=== PATIENT | female | born 1995 | race Native Hawaiian/Other Pacific Islander ===

== ENCOUNTER 2018-02-26 03:29 | Emergency (ER) | payer BC ==
[2018-02-26] MEDS ORDERED: Sodium Chloride 0.9% 1,000 ML IV ONE (04:25)
[2018-02-26 04:57] LABS: HCG,QUALITATIVE URINE NEGATIVE (NEGATIVE); SQUAMOUS EPITHIAL 1 /hpf (0-5); URINE BILIRUBIN NEGATIVE (NEGATIVE); URINE BLOOD 1+ (NEGATIVE); URINE CLARITY Clear (Clear); URINE COLOR Yellow (YELLOW); URINE GLUCOSE (UA) NORMAL (Normal); URINE LEUKOCYTE ESTERASE NEG Leu/uL (Negative); URINE PROTEIN NEGATIVE (NEGATIVE); URINE UROBILINOGEN NORMAL mg/dL (0.2-1.0)
[2018-02-26 05:09] LABS: BASO % 0.2 % (0.0-2.0); EOS # 0.3 K/uL (0.0-0.7); EOS % 1.6 % (0.0-4.0); HEMOGLOBIN 12.7 g/dL (11.0-16.0); LYMPH # 1.8 K/uL (1.0-4.3); LYMPH % 9.8 % (20.0-40.0); MEAN CELL VOLUME 84.6 fL (81.0-99.0); MEAN CORPUSCULAR HEMOGLOBIN 28.3 pg (27.0-31.0); MEAN CORPUSCULAR HGB CONC 33.4 g/dL (33.0-37.0); MEAN PLATELET VOLUME 8.2 fL (7.2-11.7); MONO # 1.3 K/uL (0.0-0.8); MONO % 7.1 % (0.0-10.0); NEUT # 14.7 K/uL (1.8-7.0); NEUT % 81.3 % (50.0-75.0); NRBC % 0.1 % (0.0-2.0); PLATELET COUNT 253 K/uL (130-400); RBC 4.51 Mil/uL (3.80-5.20); WHITE BLOOD COUNT 18.1 K/uL (4.8-10.8)
[2018-02-26 05:27] LABS: ALB/GLOB RATIO 1.2 (1.0-2.1); ALBUMIN 4.5 g/dL (3.5-5.0); ALT/SGPT 14 U/L (9-52); AST/SGOT 27 U/L (14-36); BLOOD UREA NITROGEN 13 mg/dL (7-17); CALCIUM 9.4 mg/dl (8.6-10.4); GFR NON-AFRICAN AMERICAN > 60
[2018-02-26] MEDS ORDERED: Enoxaparin 40 mg Syringe SC ONE (05:52)
--- NOTE | 2018-02-26 05:58 | C.PDOC ---
History Of Present Illness 23-year-old female, whose PMHx includes Hypothyroidism, presents to the ED for evaluation of subjective fever and dry cough since last night. Patient states she began experiencing persistent cough earlier tonight, and presents to the ED for further evaluation. Upon ED arrival, patient had heart rate of 136bpm. She denies shortness of breath (in association with cough), chest pain, chest tightness and headache. Patient denies risk factors for PE; she denies taking control or oral contraceptives and recent travel. Patient states she has been compliant with Synthroid. Time Seen by Provider: 02/26/18 03:47 Chief Complaint (Nursing): Fever History Per: Patient History/Exam Limitations: no limitations Onset/Duration Of Symptoms: Hrs Current Symptoms Are (Timing): Still Present Location Of Pain: None Associated Symptoms: Fever, Cough. denies: Sputum Additional History Per: Patient Past Medical History Reviewed: Historical Data, Nursing Documentation, Vital Signs Vital Signs: Last Vital Signs Temp 99 F 02/26/18 06:38 Pulse 114 H 02/26/18 06:38 Resp 20 02/26/18 06:38 BP 99/66 L 02/26/18 06:38 Pulse Ox 98 02/26/18 06:56 - Medical History PMH: Hypothyroidism Surgical History: No Surg Hx Family History: States: Unknown Family Hx - Social History Hx Alcohol Use: No Hx Substance Use: No - Immunization History Hx Tetanus Toxoid Vaccination: No Hx Influenza Vaccination: Yes Hx Pneumococcal Vaccination: No Review Of Systems Constitutional: Positive for: Fever Cardiovascular: Negative for: Chest Pain Respiratory: Positive for: Cough. Negative for: Sputum Neurological: Negative for: Headache Physical Exam - Physical Exam Appears: Non-toxic, No Acute Distress Skin: Normal Color, Warm, Dry Head: Atraumatic, Normacephalic Eye(s): bilateral: Normal Inspection Ear(s): Bilateral: Normal Nose: Normal, No Discharge Oral Mucosa: Moist Throat: Normal, No Erythema, No Exudate Neck: Supple Chest: Symmetrical, No Deformity, No Tenderness Cardiovascular: Rhythm Regular, No Murmur, Other (S1 and S2 with tachycardia ) Respiratory: Normal Breath Sounds, No Rales, No Rhonchi, No Wheezing Extremity: Normal ROM, Capillary Refill (less than 2 seconds ) Neurological/Psych: Oriented x3, Normal Speech, Normal Cognition ED Course And Treatment - Laboratory Results Result Diagrams: 02/26/18 05:05 02/26/18 05:05 ECG: Interpreted By Me, Viewed By Me ECG Rhythm: Sinus Tachycardia Rate From EC O2 Sat by Pulse Oximetry: 98 (on RA) Pulse Ox Interpretation: Normal - CT Scan/US CTA Chest Other Rad Studies (CT/US): Read By Radiologist, Radiology Report Reviewed CT/US Interpretation: EXAM: CT Angiography Chest With Intravenous Contrast. EXAM DATE/TIME: 02/26/2018 5:42 AM. CLINICAL HISTORY: 23 years old, female; Signs and symptoms; Shortness of breath; Additional info: Palpations. Elev. dimer. TECHNIQUE: Axial computed tomographic angiography images of the chest with intravenous contrast using CT. angiography protocol. 7[address] All [address] scans at this facility use at least one of these dose optimization techniques: automated. exposure control; mA and/or kV adjustment per patient size (includes targeted exams where dose is. matched to clinical indication); or iterative reconstruction. Coronal and sagittal reformatted images were created and reviewed. MIP reconstructed images were created and reviewed. Axial reformatted images are submitted and. mediastinum and lung windows. COMPARISON: No relevant prior studies available. FINDINGS: Pulmonary arteries: No CT evidence for pulmonary embolus. Aorta: Normal. No aortic aneurysm. No aortic dissection. Lungs: There is mild peribronchial cuffing. patchy nodular infiltrate involving the left lower lobe and. right middle lobe, superior segment of right lower lobe and lingula suspicious for multifocal. pneumonia with mild superimposed edema versus increased intravascular volume. Pleural space: Normal. No pneumothorax. No pleural effusion. Heart: Normal. No cardiomegaly. No pericardial effusion. Mediastinum : Small hiatal hernia. Bones/joints: Unremarkable. No acute fracture. Soft tissues: Unremarkable. Lymph nodes: Small bilateral hilar lymph nodes. Adrenals: Normal adrenal glands. IMPRESSION: 1. No CT evidence for pulmonary embolus. 2. There is mild peribronchial cuffing. patchy nodular infiltrate involving the left lower lobe and right. middle lobe, superior segment of right lower lobe and lingula suspicious for multifocal pneumonia with. mild superimposed edema versus increased intravascular volume. Progress Note: Bloodwork, urinalysis, CT A/P, CXR ordered and reviewed. CXR shows no infiltrates. Lovenox SC and IV Fluids given. Lab and radiology results have been discussed with patient. On re-examination, patient is resting comfortably, showing no signs of distress and has shown improvement in heart rate. Patient's labs remain stable and is stable for discharge. Patient is advised to follow up with her PMD within 1-2 days for further evaluation and to return to the ED if symptoms persist or worsen. Patient verbalizes understanding. Disposition Counseled Patient/Family Regarding: Diagnosis, Need For Followup - Disposition Referrals: Shant Jeffers MD [Staff Provider] - Disposition: HOME/ ROUTINE Disposition Time: 07:03 Condition: STABLE Additional Instructions: Please follow up with PMD tomorrow Take medications as directed Return to ER if difficulty breathing, wheezing, high fever, chest pain or worse Prescriptions: Azithromycin [Zithromax] 250 mg PO DAILY #4 tab Benzonatate [Tessalon Perles] 100 mg PO TID #20 sgl Instructions: Pneumonia, Adult (DC) Forms: [employer] (Cuban) - Clinical Impression Clinical Impression: Pneumonia - PA / AUDIO VISUAL TECH / Resident Statement MD/DO has reviewed & agrees with the documentation as recorded. - Scribe Statement The provider has reviewed the documentation as recorded by the Scribe (Adelina Castillo) All medical record entries made by the Scribe were at my direction and personally dictated by me. I have reviewed the chart and agree that the record accurately reflects my personal performance of the history, physical exam, medical decision making, and the department course for this patient. I have also personally directed, reviewed, and agree with the discharge instructions and disposition.
[2018-02-26] MEDS ORDERED: Enoxaparin 60 mg Syringe ONE (06:04)
[2018-02-26 06:20] LABS: BANDS 5 % (0-2); EOSINOPHIL 2 % (0-4); LYMPHOCYTE 10 % (20-40); MONOCYTE 4 % (0-10); NEUTROPHIL 79 % (50-75); PLATELET ESTIMATE NORMAL (NORMAL); TOTAL CELLS COUNTED 100
[2018-02-26] MEDS ORDERED: cefTRIAXone IV 1 gm in Dextros 50 ML IVPB ONE (06:52)
[2018-02-26] MEDS ORDERED: Azithromycin 500mg/250ML NS 500 MG/250 ML BAG IVPB STA (06:55)
[2018-02-26] MEDS ORDERED: cefTRIAXone 1 gm 1 GM/100 ML BAG IVPB ONE (07:01)
[2018-02-26] MEDS ORDERED: Azithromycin 500mg/250ML NS 500 MG/250 ML BAG IVPB ONE (07:53)
[2018-02-26 09:02] VITALS: BP 96/65; PULSE 105; RESP 20; TEMP 99.6; O2SAT 99
--- NOTE | 2018-02-26 09:19 | RAD ---
HISTORY: COMPARISON: No prior. TECHNIQUE: Chest PA and lateral FINDINGS: LINES AND TUBES: None. LUNG AND PLEURA: The lungs are well inflated and clear. There are diffuse increased streaky opacities in the lungs with No pleural effusion or pneumothorax. HEART AND MEDIASTINUM: The heart is not enlarged. The hilar and mediastinal contours are within normal limits. SKELETAL STRUCTURES: The bony structures are within normal limits for the patient's age. VISUALIZED UPPER ABDOMEN: Normal. OTHER FINDINGS: None. IMPRESSION: Diffuse increased streaky opacities in the lungs may represent reactive small airway disease/ viral pneumonitis. No lobar pneumonia.
--- NOTE | 2018-02-26 10:53 | CT ---
Date of service: 02/26/2018 PROCEDURE: CT Chest with contrast (Pulmonary Angiogram) HISTORY: Palpations. elev dimer COMPARISON: None available. TECHNIQUE: Axial computed tomography images were obtained of the chest in the pulmonary arterial phase of enhancement. Coronal and sagittal reformatted images were created and reviewed. Intravenous contrast dose: 100 mL Visipaque 320 Radiation dose: Total exam DLP = 207.8 mGy-cm. This CT exam was performed using one or more of the following dose reduction techniques: Automated exposure control, adjustment of the mA and/or kV according to patient size, and/or use of iterative reconstruction technique. FINDINGS: PULMONARY ARTERIES: Unremarkable. No pulmonary embolism. AORTA: No acute findings. No thoracic aortic aneurysm. LUNGS: Bilateral patchy opacities, predominantly in the right middle and left lower lobes, likely infectious/ inflammatory. PLEURAL SPACES: Unremarkable. No effusion or pneumothorax. HEART: Unremarkable. No cardiomegaly. No significant pericardial effusion. LYMPH NODES: No lymphadenopathy. BONES, CHEST WALL: Unremarkable. No fracture or destructive lesion OTHER FINDINGS: Unremarkable. IMPRESSION: Unremarkable CT pulmonary angiogram. No pulmonary embolus. Bilateral patchy opacities, predominantly in the right middle and left lower lobes, likely infectious/inflammatory.
--- NOTE | 2018-02-28 14:35 | CARD ---
APPROVED REPORT Date of service: 02/26/2018 EKG Measurement Heart [id number] <Conclusion> Sinus tachycardia Otherwise normal
== END 2018-02-26 09:03 | disposition home or self-care (01) ==
LOC: C.ER 03:29
DX: J18.9 Pneumonia, unspecified organism (principal)
CPT/HCPCS: 71046; 71275; 80053; 81001; 84443; 84703; 85025; 85378; 93005; 96361; 96365; 96372; 96375; 99284; J0456; J0696; J1650; J7030